=== PATIENT | female | born 1970 | race Caucasian/White ===

== ENCOUNTER → 2017-05-01 | Day surgery (SDC) | payer OTHER ==
[~2017-05-01] MED LIST: BUPIVACAINE HCL PF 0.75% 30 ML VIAL ONE; BUPIVACAINE/EPINEPHRINE 0.25% 50 ML VIAL ONE; LACTATED RINGER'S 1000 ML INJ 1,000 ML ONE; LIDOCAINE 1.5%/EPINEPHrine 1:200,000 PF SOLN 30 ML AMP ONE; LIDOCAINE 2%/EPINEPHrine PF 1:200,000 20ML SDV ONE; MIDAZOLAM HCL 5 MG/ML VIAL (1 ML) ONE; PROPOFOL 200 MG/20 ML AMP IV ONE; TRIAMCINOLONE ACETONIDE 40 MG/ML VIAL ONE
--- NOTE | 2017-05-01 13:24 | MP ---
cc: SANG CORTES DATE OF SURGERY May 01, 2017. PREOPERATIVE DIAGNOSIS Left shoulder adhesive capsulitis (frozen shoulder). POSTOPERATIVE DIAGNOSIS Left shoulder adhesive capsulitis (frozen shoulder). SURGEON Sang Cortes MD PROCEDURE Left shoulder manipulation under anesthesia with interarticular injection under fluoroscopic guidance. ESTIMATED BLOOD LOSS Minimal ANESTHESIA Regional and TIVA. PROCEDURE Regional anesthesia was administered to the shoulder. The patient was brought back to operative theater. TIVA anesthesia was administered. We prepped and draped the left shoulder in the usual sterile fashion. We used fluoroscopic guidance to place an interarticular injection of 3 cc of course 0.25% Marcaine with epinephrine with 40 mg of Kenalog. We examined the shoulder, showed forward flexion to 90 degrees, abduction to 90 degrees, external rotation to 20 degrees. We then performed manipulation under anesthesia with fairly easy release of the adhesions and typical tearing associated with the adhesions. We were then able to achieve forward flexion to 170 degrees, abduction to 170 degrees, external rotation to 70 degrees and full across the body motion. Repeated the manipulation of multiple times to make sure that there were no further residual adhesions. A Band-Aid was placed over the injection site prior to manipulation. The patient was brought back to the recovery room in stable condition. Postop plan is early range of motion. MD WILLIAN Velasco/JANET /1:11 PM /1:18 PM
== END | disposition home or self-care (01) ==
LOC: ESDC 10:53
PROVIDERS: ATTEND Orthopaedic Surgery
DX: M75.02 Adhesive capsulitis of left shoulder (principal)
CPT/HCPCS: 01620; 01991; 23700; 64417; 76000; J2250; J3301; J7120; 73020

== ENCOUNTER → 2018-01-17 | Outpatient (CLI) | payer OTHER ==
[~2018-01-17] MED LIST changes: -BUPIVACAINE HCL PF 0.75% 30 ML VIAL ONE; -BUPIVACAINE/EPINEPHRINE 0.25% 50 ML VIAL ONE; +EFLO13.9 TOPICAL; -LACTATED RINGER'S 1000 ML INJ 1,000 ML ONE; -LIDOCAINE 1.5%/EPINEPHrine 1:200,000 PF SOLN 30 ML AMP ONE; -LIDOCAINE 2%/EPINEPHrine PF 1:200,000 20ML SDV ONE; -MIDAZOLAM HCL 5 MG/ML VIAL (1 ML) ONE; -PROPOFOL 200 MG/20 ML AMP IV ONE; -TRIAMCINOLONE ACETONIDE 40 MG/ML VIAL ONE
[2018-01-17 12:04] LABS: AUTOMATED NEUTROPHIL # 6.2 TH/MM3 (1.8-7.7); BASOPHIL # 0.1 TH/MM3 (0-0.2); BASOPHIL % 0.8 % (0.0-2.0); EOSINOPHIL # 0.2 TH/MM3 (0-0.4); EOSINOPHIL % 2.1 % (0.0-4.0); HEMATOCRIT 41.6 % (35.0-46.0); LYMPHOCYTE # 2.2 TH/MM3 (1.0-4.8); MEAN CELL VOLUME 84.7 FL (80.0-100.0); MEAN CORPUSCULAR HEMOGLOBIN 28.6 PG (27.0-34.0); MEAN CORPUSCULAR HGB CONC 33.7 % (32.0-36.0); MEAN PLATELET VOLUME 9.3 FL (7.0-11.0); MONO % 4.2 % (0.0-8.0); MONOCYTE # 0.4 TH/MM3 (0-0.9); NEUT % 68.9 % (16.0-70.0); PLATELET COUNT 254 TH/MM3 (150-450); RED BLOOD COUNT 4.92 MIL/MM3 (4.00-5.30); RED CELL DISTRIBUTION WIDTH 13.6 % (11.6-17.2)
[2018-01-17 12:15] LABS: PROTHROMBIN TIME - PATIENT 10.4 SEC (9.8-11.6)
[2018-01-17 12:24] LABS: BILIRUBIN, URINE NEG (NEG); BLOOD, URINE LARGE (NEG); GLUCOSE,URINE NEG (NEG); KETONE, URINE NEG (NEG); MUCUS URINE FEW /lpf (OCC); NITRITE,URINE NEG (NEG); SQUAMOUS EPITHELIAL CELL URINE 1 /hpf (0-5); URINE COLOR YELLOW (YELLW/STRAW); URINE LEUKOCYTE ESTERASE NEG (NEG)
[2018-01-17 12:27] LABS: ALBUMIN 3.8 GM/DL (3.4-5.0); AST (GOT) 26 U/L (15-37); BICARBONATE 23.1 MEQ/L (21.0-32.0); BLOOD UREA NITROGEN 11 MG/DL (7-18); CALCIUM 9.3 MG/DL (8.5-10.1); CHLORIDE 105 MEQ/L (98-107); CREATININE 0.88 MG/DL (0.50-1.00); GLOMERULAR FILTRATION RATE 69 ML/MIN (>89); GLUCOSE,FASTING 150 MG/DL (74-99); SODIUM (NA) 139 MEQ/L (136-145)
[2018-01-17 12:34] LABS: ALKALINE PHOSPHATASE 17 U/L (45-117); ALT (GPT) 43 U/L (10-53); TOTAL BILIRUBIN ADULT 0.6 MG/DL (0.2-1.0); TOTAL PROTEIN 7.7 GM/DL (6.4-8.2)
== END ==
LOC: CPRE 10:56
PROVIDERS: ATTEND Obstetrics & Gynecology
DX: Z01.812 Encounter for preprocedural laboratory examination (principal); R10.2 Pelvic and perineal pain; D25.9 Leiomyoma of uterus, unspecified
CPT/HCPCS: 36415; 80053; 81001; 84703; 85025; 85610

== ENCOUNTER 2018-01-21 06:02 | Inpatient (IN) | payer OTHER ==
[~2018-01-21] VITALS: Ht 175.3 cm; Wt 117.6 kg
[2018-01-21] MEDS ORDERED: LACTATED RINGER'S 1000 ML IV PRN (06:45)
[2018-01-21] MEDS ORDERED: ceFAZolin 2 GM/DEX PREMIX 50 ML IV SCH (06:45)
[2018-01-21] MEDS ORDERED: CHLORHEXIDINE GLUCONATE 2 % 1 PACK (2 CLOTHS) TOPICAL PRN (06:45)
[2018-01-21] MEDS ORDERED: SODIUM CHLORID 0.9% 500 ML IV PRN (06:45)
[2018-01-21] MEDS ORDERED: METOPROLOL TARTRATE 25 MG TAB PO PRN (06:45)
[2018-01-21] MEDS ORDERED: POVIDONE IODINE 5% (ANTISEPSIS KIT) 4 APPLICATIONS EACH NARE PRN (06:45)
[2018-01-21] MEDS ORDERED: ACETAMINOPHEN 1000 MG/100 ML 100 ML IV ONE (06:51)
[2018-01-21] MEDS ORDERED: FAMOTIDINE 20 MG/2 ML VIAL ONE ×2 (06:52→07:11)
[2018-01-21] MEDS ORDERED: APREPITANT 40 MG CAP ONE (07:11)
[2018-01-21] MEDS ORDERED: ONDANSETRON HCL 4 MG/2 ML VIAL ONE (07:11)
[2018-01-21] MEDS ORDERED: BUPIVACAINE/EPINEPHRINE 0.5% PF 30 ML VIAL ONE (07:18)
[2018-01-21] MEDS ORDERED: ESTROGENS CONJUGATED VAG CREA 15 APPL/30 GM TUBE ONE (07:18)
[2018-01-21] MEDS ORDERED: PROMETHAZINE INJ 25 MG/ML VIAL IM PRN (11:45)
[2018-01-21] MEDS ORDERED: diphenhydrAMINE HCL 50 MG/ML VIAL IV PUSH PRN (11:45)
[2018-01-21] MEDS: LACTATED RINGER'S 1000 ML INJ 1,000 ML IV SCH ×2 (11:45→20:30)
[2018-01-21] MEDS ORDERED: ZOLPIDEM TARTRATE 5 MG TAB PO PRN (11:45)
[2018-01-21] MEDS ORDERED: DOCUSATE SODIUM 100 MG CAP PO PRN (11:45)
[2018-01-21] MEDS ORDERED: SODIUM CHLORIDE 0.9% FLUSH 10 ML FLUSH IV FLUSH PRN (11:45)
[2018-01-21] MEDS ORDERED: NALOXONE HCL 0.4 MG/ML AMP IV PUSH PRN (11:45)
[2018-01-21] MEDS ORDERED: oxyCODONE/ACETAMINOPHEN 5 MG/325 MG TAB PO PRN (11:45)
[2018-01-21] MEDS ORDERED: ONDANSETRON ODT 4 MG TAB SL PRN (11:45)
[2018-01-21] MEDS ORDERED: MORPHINE SULFATE 30 MG/30 ML PCA IV SCH (11:45)
[2018-01-21] MEDS ORDERED: diphenhydrAMINE HCL 25 MG CAP PO PRN (11:45)
--- NOTE | 2018-01-21 11:54 | HHI.PR ---
Immediate Post Op Note Procedure Date: Jan 21, 2018 Pre Op Diagnosis: (1) Menorrhagia (2) Dysmenorrhea Post Op Diagnosis: (1) Pelvic adhesive disease (2) Menorrhagia (3) Dysmenorrhea Surgeon: Marya Kline MD Strap Maker(s): MD Aramis Almeida, MS 3 [facility] Procedure: Exam under anesthesia, ex-lap with supracervical hysterectomy, bilateral salpingectomy, left oophorectomy, lysis of adhesions Findings: Uterus anteverted 7 cm in size, scarring of bladder to lower uterine segment ( dense adhesion left of midline), retraction of uterus to left side of pelvis, left tube with likely endometriosis. Attenuation of bilateral round ligaments. Left broad ligament thick and scarred, likely endometriosis. Bilateral ovaries appeared atrophic. Friable, hyperemic tissue. Morbid obesity, unable to reach intraperitoneal cavity despite bariatric trocars. Complications: conversion to ex-lap Specimen(s) removed: Uterus, bilateral tubes, left ovary Anesthesia: General Drains: None Fluids: 1500ml IVF Urinary Output (mLs): 300 Patient to: PACU Patient Condition: Good Marya Kline MD Jan 21, 2018 11:53
[2018-01-21] MEDS ORDERED: ROCURONIUM INJ 50 MG/5 ML SYRINGE IV PUSH ONE (12:00)
[2018-01-21] MEDS ORDERED: LIDOCAINE HCL 1% PF 5 ML SYRINGE OTHER ONE (12:00)
[2018-01-21] MEDS ORDERED: ONDANSETRON HCL 4 MG/2 ML VIAL IV ONE (12:00)
[2018-01-21] MEDS ORDERED: NEOSTIGMINE 5 MG/5 ML SYRINGE IV PUSH ONE (12:00)
[2018-01-21] MEDS ORDERED: PROPOFOL 200 MG/20 ML AMP IV ONE (12:00)
[2018-01-21] MEDS ORDERED: GLYCOPYRROLATE 1 MG/5 ML SYRINGE IV PUSH ONE (12:00)
[2018-01-21] MEDS ORDERED: ePHEDrine/NS 25 MG/5 ML SYRINGE IV ONE (12:00)
[2018-01-21] MEDS ORDERED: LACTATED RINGER'S 1000 ML INJ 2,000 ML IV ONE (12:00)
[2018-01-21] MEDS ORDERED: DO NOT ADM ANY ANTICOAGULANT DRUGS PRN (12:02)
[2018-01-21] MEDS ORDERED: MIDAZOLAM HCL 2 MG/2 ML VIAL ONE (12:13)
[2018-01-21] MEDS ORDERED: *morphine SULFATE 8 MG/ML PERIprocedure ONLY ONE (12:29)
[2018-01-21] MEDS ORDERED: *PROMETHAZINE 25 MG/ML VIAL PERIprocedural use ONLY ONE (12:35)
[2018-01-21] MEDS: ACETAMINOPHEN 1000 MG/100 ML 100 ML IV SCH ×2 (13:00→18:14)
[2018-01-21 13:25] VITALS: BP 122/67; PULSE 83; RESP 16; TEMP 98.3; O2SAT 98
[2018-01-21 16:40] VITALS: BP 131/76; PULSE 91; RESP 18; TEMP 98.6; O2SAT 96
[2018-01-21] MEDS: PCA - TOTAL MG MORPHINE DELIVERED PER SHIFT SCH ×2 (18:36→22:00)
[2018-01-21 20:00] VITALS: BP 122/70; PULSE 71; RESP 18; TEMP 99.6; O2SAT 98
[2018-01-21] MEDS ORDERED: SODIUM CHLORIDE 0.9% FLUSH 10 ML FLUSH IV FLUSH SCH (21:00)
--- NOTE | 2018-01-21 21:05 | MP ---
cc: Marya Kline MD DATE OF OPERATION: 01/21/2018 PREOPERATIVE DIAGNOSES: 1. Menorrhagia. 2. Dysmenorrhea. POSTOPERATIVE DIAGNOSES: 1. Menorrhagia. 2. Dysmenorrhea. 3. Pelvic adhesive disease, possible endometriosis. PROCEDURE PERFORMED: Exam under anesthesia, exploratory laparotomy, supracervical hysterectomy, bilateral salpingectomy, left oophorectomy, lysis of adhesions. INDICATIONS FOR PROCEDURE: The patient is a 47-year-old female with menorrhagia and dysmenorrhea. She had previously had good success with a Mirena IUD, but this was expelled after being in place for 2 years. Options were reviewed with the patient of repeat IUD, ablation or hysterectomy. Given her significant dysmenorrhea and menorrhagia, she did want definitive therapy. SURGEON: Marya Kline MD [employer]ED GOODS: Hermes MD and observer Aramis Lin, MS-3, [facility]. ANTIBIOTICS: Ancef 2 grams IV given preprocedure. DEEP VEIN THROMBOSIS PROPHYLAXIS: SCDs to lower extremities. COMPLICATIONS: Conversion to exploratory laparotomy. COUNTS: Correct. DISPOSITION: Stable to PACU. INTRAOPERATIVE FINDINGS: Uterus anteverted, approximately 7 cm in size. Scarring of the bladder to the lower uterine segment, with a dense adhesion left of midline. Retraction of the uterus to the left pelvic sidewall and deep in the pelvis. On bimanual exam, the left tube with multiple blebs, likely indicative of endometriosis. Attenuation of bilateral round ligaments. Left broad ligament was thick and scarred, likely endometriosis. Bilateral ovaries appeared atrophic. Tissue was friable and hyperemic. ESTIMATED BLOOD LOSS: 200 mL INTRAVENOUS FLUIDS: 1500 mL of lactated Ringer. URINE OUTPUT: 300 mL of clear yellow urine at the end of the case. PROCEDURE IN DETAIL: After review of informed consent, the patient was taken to the operating room, where general anesthesia was administered without complication. Her arms were tucked bilaterally. She was placed in dorsal lithotomy position in Felipe stirrups. The abdomen and perineum were prepped and draped in normal sterile fashion. A Osei was placed. Exam under anesthesia was performed. See the intraoperative findings. A bivalve speculum was placed in the vagina. Single-tooth tenaculum was placed on the anterior lip of the cervix. A Hulka uterine manipulator was placed. A single-tooth tenaculum was removed. The speculum was removed. Gloves were changed. Attention was turned to the abdomen. Given the patient's history of appendectomy, cholecystectomy and , as well as indications of scarring from the retracted cervix in the pelvis, decision was made to proceed with a left upper quadrant entry. Marcaine 0.5% with epinephrine was injected in the left upper quadrant, on the inferior costal edge midclavicular line. A 5 mm incision was made with the scalpel. A bariatric trocar was used under direct visualization. The length of the trocar was exceeded without obtaining peritoneal entry. A second attempt was performed and again unsuccessful due to subcutaneous and preperitoneal fat. The laparoscopy was abandoned given the limitation of instruments. Her prior Pfannenstiel incision was used for an exploratory laparotomy. An incision was made with a scalpel. The incision was taken down to the fascia with the Bovie. The fascia was incised in the midline with the Bovie. The incision was extended bilaterally with Whatley scissors. The superior edge of the fascia was grasped with Bess clamps. There was scarring of the rectus muscles to the fascia. This was slowly taken down with Whatley scissors. Attention was turned to the inferior edge of the fascia. Kochers were placed on this and the rectus muscles were dissected away bluntly, as well as with the aid of Whatley scissors. The rectus muscles were scarred in the midline. A hemostat was used to delicately find the midline. The peritoneum was tented and Metzenbaum scissors were used to extend this incision. An exam of the perineum was performed, to note there were no adhesions to this. The peritoneal incision was then extended bluntly. A self-retaining retractor was then performed. The bowel was packed away with moistened laparotomy sponges. A bladder blade was then inserted. The uterus had poor mobility. It was scarred to the left pelvic wall. As the Harmonic had already been opened, this was utilized during the procedure. There were some filmy adhesions of the bladder to the lower uterine segment. These filmy adhesions were taken down to reveal more dense adhesions of the bladder to the uterus. The right round ligament was doubly suture ligated. The round ligament was transected with the Bovie. An attempt was made to develop the space between the anterior and the posterior broad ligament, but was not successful with the Bovie. Metzenbaum scissors were used with success up to the midline, where there were dense adhesions. This was not addressed at this point of the surgery. Attention was then turned to removal of the left fallopian tube. The Harmonic was utilized. The uteroovarian ligament was transected with the Harmonic. Hydrodissection and transection was carried down to the level of the uterine artery. The ovary was noted to have bleeding. Suturing was attempted to control the bleeding, but was not successful. Decision was made to remove the left ovary. The Harmonic was used to transect the infundibulopelvic ligament. There was some bleeding noted from the pedicle. Pressure was held with resolution of the bleeding. Attention was then turned to the right side of the procedure. The right tube was removed from a lateral to medial fashion towards the cornual region using the Harmonic. The right broad ligament was double suture ligated. The Bovie was used to transect the round ligament. The Harmonic was used to develop the bladder flap initially and then the Metzenbaum scissors were used to complete the bladder flap. On attempting to further develop the bladder flap, there were the dense adhesions of the bladder, left of midline to the cervix. These were deep into the serosa. The serosa was undermined into the body of the uterus to create distance from the bladder to the specimen side, with sufficient distance to proceed with a supracervical hysterectomy. The uteroovarian ligament was hydrodissected and transected with the Harmonic. Serial bites were taken down to the level of the uterine artery. Of note, there were several aberrant vessels and increased vasculature. The tissue was hyperemic throughout the procedure. At this point, a Bovie was used to transect the uterus from the cervix in a circumferential fashion. The cervical stump was made hemostatic with the Bovie, followed by a running stitch of 0 Vicryl. The right ovary had some bleeding at the site of separation from the uterus. This was made hemostatic with 2-0 chromic. The pelvis was irrigated and suctioned. Good hemostasis was noted. Surgiflo was placed on all pedicles. The self-retaining retractor was removed. All lap sponges were removed from the abdomen. Count was correct. The fascia was closed with #1 Vicryl in a running fashion. Of note, upon entry into the abdomen, the left rectus muscle had some bleeding. This was made hemostatic with 2-0 chromic [id number]. The area remained hemostatic at the end of the case. The fascia and the rectus muscles were inspected and noted to have good hemostasis. Prior to closure of the fascia, the subcutaneous tissue was irrigated and suctioned, 2-0 chromic in a running fashion was used to approximate this layer, 3-0 Monocryl in a subcuticular fashion was used to close the skin. Steri-Strips were placed, followed by Primapore dressing. The left upper quadrant trocar site was closed with 3-0 Monocryl and Steri-Strips placed. The patient did tolerate the procedure well. She was placed in the supine position prior to anesthesia reversal. She was taken to PACU in stable condition. MD JOLYNN Hartley/ALEX , 06:41 PM , 09:04 PM
[2018-01-21 23:21] VITALS: BP 97/68; PULSE 72; RESP 18; TEMP 99.4; O2SAT 100
[2018-01-21] MEDS: IBUPROFEN 600 MG TAB PO PRN (23:21)
[2018-01-22] MEDS: ACETAMINOPHEN 1000 MG/100 ML 100 ML IV SCH ×2 (00:04→06:19)
[2018-01-22 04:00] VITALS: BP 106/55; PULSE 92; RESP 18; TEMP 99; O2SAT 94
[2018-01-22] MEDS: IBUPROFEN 600 MG TAB PO PRN (04:28)
[2018-01-22 05:55] LABS: AUTOMATED NEUTROPHIL # 8.9 TH/MM3 (1.8-7.7); BASOPHIL # 0.1 TH/MM3 (0-0.2); BASOPHIL % 0.7 % (0.0-2.0); EOSINOPHIL # 0.1 TH/MM3 (0-0.4); EOSINOPHIL % 0.9 % (0.0-4.0); HEMATOCRIT 38.4 % (35.0-46.0); HEMOGLOBIN 12.4 GM/DL (11.6-15.3); MEAN CELL VOLUME 86.5 FL (80.0-100.0); MEAN CORPUSCULAR HGB CONC 32.4 % (32.0-36.0); MEAN PLATELET VOLUME 9.5 FL (7.0-11.0); MONO % 5.9 % (0.0-8.0); MONOCYTE # 0.7 TH/MM3 (0-0.9); NEUT % 75.5 % (16.0-70.0); PLATELET COUNT 235 TH/MM3 (150-450); RED BLOOD COUNT 4.44 MIL/MM3 (4.00-5.30); RED CELL DISTRIBUTION WIDTH 13.6 % (11.6-17.2); WHITE BLOOD COUNT 11.8 TH/MM3 (4.0-11.0)
[2018-01-22 08:00] VITALS: BP 128/61; PULSE 71; RESP 18; TEMP 98.1; O2SAT 95
--- NOTE | 2018-01-22 08:57 | HHI.OB ---
Subjective Post Operative Day: 1 Remarks doing well, voiding, walking,eating. Awaiting flatus. Pain well controlled. Objective Vitals/I&O Vital Signs Date Time Temp Pulse Resp B/P (MAP) Pulse Ox O2 Delivery O2 Flow Rate FiO2 01/22/18 08:00 98.1 71 18 128/61 (83) 95 01/22/18 04:00 99.0 92 18 106/55 (72) 94 01/21/18 23:21 99.4 72 18 97/68 (78) 100 01/21/18 22:00 18 01/21/18 20:00 99.6 71 18 122/70 (87) 98 01/21/18 18:36 16 01/21/18 16:40 98.6 91 18 131/76 (94) 96 01/21/18 13:25 98.3 83 16 122/67 (85) 98 01/21/18 12:51 72 17 146/63 (90) 97 Nasal Cannula 3 01/21/18 12:45 75 16 118/58 (78) 99 Nasal Cannula 3 01/21/18 12:30 65 18 117/59 (78) 97 Nasal Cannula 3 01/21/18 12:28 17 01/21/18 12:15 78 18 121/69 (86) 98 Nasal Cannula 3 01/21/18 12:02 98.9 71 20 124/63 (83) 92 Nasal Cannula 3 Intake & Output 01/22/18 01/22/18 07:00 19:00 Output Total 850 ml Balance -850 ml Output Urine Total 850 ml # Voids 1 Result Diagram: 01/22/18 0513 Objective Remarks GENERAL: Well-nourished, well-developed patient. CARDIOVASCULAR: Regular rate and rhythm without murmurs, gallops, or rubs. RESPIRATORY: Breath sounds equal bilaterally. No accessory muscle use. ABDOMEN/GI: Abdomen soft, non-tender, bowel sounds present. Incision: Clean, dry and intact. Fundus: Firm, non-tender at umbilicus. GENITOURINARY: Light to moderate bleeding. EXTREMITIES: No cyanosis or edema, non-tender, without signs of DVT. Medications and IVs Current Medications Medications (Trade) Dose Ordered Sig/Gael Route Start Time Stop Time Status Last Admin (Lopressor) 25 mg BOILER FITTER PRN PO 01/21/18 06:45 01/24/18 06:44 (Betadine 5% Antisepsis Kit) 1 applic BOILER FITTER PRN EACH NARE 01/21/18 06:45 01/24/18 06:44 01/21/18 07:00 (Chlorhexidine 2% Cloth) 3 pack BOILER FITTER PRN TOPICAL 01/21/18 06:45 01/24/18 06:44 01/21/18 06:45 Cefazolin Sodium/ Dextrose 50 ml @ 100 mls/hr BOILER FITTER IV 01/21/18 06:45 01/24/18 06:44 01/21/18 08:00 Lactated Ringer's 1,000 ml @ 125 mls/hr Q8H IV 01/21/18 11:45 01/21/18 20:30 (NS Flush) 2 ml UNSCH PRN IV FLUSH 01/21/18 11:45 (NS Flush) 2 ml BID IV FLUSH 01/21/18 21:00 (Tylenol) 650 mg Q4H PRN PO 01/22/18 12:00 (Motrin) 600 mg Q6H PRN PO 01/21/18 11:45 01/22/18 04:28 (Percocet 10-325 Mg) 1 tab Q4H PRN PO 01/22/18 12:00 (Zofran Odt) 4 mg Q6H PRN SL 01/21/18 11:45 (Phenergan Inj) 25 mg Q6H PRN IM 01/21/18 11:45 01/21/18 13:11 (Benadryl Inj) 25 mg Q6H PRN IV PUSH 01/21/18 11:45 (Benadryl) 25 mg Q6H PRN PO 01/21/18 11:45 (Colace) 100 mg Q12H PRN PO 01/21/18 11:45 (Ambien) 5 mg HS PRN PO 01/21/18 11:45 (Percocet 5-325 Mg) 1 tab Q4H PRN PO 01/22/18 12:00 ([facility] [place] [facility] ALL NURSING DEPARTME... UNSCH PRN .XX 01/21/18 12:02 01/22/18 12:01 Assessment/Plan Problem List: (1) S/P abdominal supracervical subtotal hysterectomy ICD Codes: Z90.711 - Acquired absence of uterus with remaining cervical stump (2) S/P left oophorectomy ICD Codes: Z90.721 - Acquired absence of ovaries, unilateral (3) Pelvic adhesive disease ICD Codes: N73.6 - Female pelvic peritoneal adhesions (postinfective) Assessment and Plan POD 1 doing well, Desires to go home. Reviewed surgery in details last night. Pt had no questions today. Reviewed infection, pain and bleeding precautions. Reviewed wound care. Discharge Planning today Marya Kline MD Jan 22, 2018 08:57
--- NOTE | 2018-01-22 08:59 | HHI.DCPOC ---
Discharge Care Plan Diagnosis: (1) S/P abdominal supracervical subtotal hysterectomy (2) S/P left oophorectomy Your Health Problems Are: Incisions/drains Report Symptoms to Your Doctor -Temperature above 100.5 degrees -Redness, of incision or excessive or foul smelling drainage -Unusual pain or calf pain -Increased vaginal bleeding -Painful or difficulty urinating Goals to Promote Your Health * To prevent worsening of your condition and complications * To maintain your health at the optimal level Directions to Meet Your Goals Take your medications as prescribed Follow your dietary instruction Follow activity as directed Ensure plenty of rest for recovery Drink fluids for hydration Keep your appointments as scheduled Take your immunizations and boosters as scheduled If your symptoms worsen call your PCP, if no PCP go to Urgent Care Center or Emergency Room Smoking is Dangerous to Your Health. Avoid second hand smoke Call the 24-hour crisis hotline for domestic abuse at Marya Kline MD Jan 22, 2018 08:59
[2018-01-22] MEDS ORDERED: oxyCODONE/ACETAMINOPHEN 5 MG/325 MG TAB PO PRN (12:00)
[2018-01-22] MEDS ORDERED: ACETAMINOPHEN 325 MG TAB PO PRN (12:00)
[2018-01-22] MEDS ORDERED: oxyCODONE/ACETAMINOPHEN 10 MG/325 MG TAB PO PRN (12:00)
== END 2018-01-22 18:06 | disposition home or self-care (01) | DRG 743 ==
LOC: HSDC 06:02 → HSDI 11:48 → H1EA 13:09
PROVIDERS: ADMIT Obstetrics & Gynecology; ATTEND Obstetrics & Gynecology
PROC: 0UT10ZZ Resection of Left Ovary, Open Approach (ICD-10-PCS; 2018-01-21)
PROC: 0DNW0ZZ Release Peritoneum, Open Approach (ICD-10-PCS; 2018-01-21)
PROC: 0UT90ZL Resection of Uterus, Supracervical, Open Approach (ICD-10-PCS; principal; 2018-01-21 08:07)
PROC: 0UT70ZZ Resection of Bilateral Fallopian Tubes, Open Approach (ICD-10-PCS; 2018-01-21 08:07)
DX: N92.0 Excessive and frequent menstruation with regular cycle (principal); E66.01 Morbid (severe) obesity due to excess calories; N73.6 Female pelvic peritoneal adhesions (postinfective); N94.6 Dysmenorrhea, unspecified; Z53.31 Laparoscopic surgical procedure converted to open procedure; Z68.38 Body mass index [BMI] 38.0-38.9, adult; E11.9 Type 2 diabetes mellitus without complications; Z87.891 Personal history of nicotine dependence
CPT/HCPCS: 85025; 86850; 86900; 86901; 88307; J0131; J0690; J2250; J2270; J2405; J2550; J2710; J3010; J7120; J8501